=== PATIENT | female | born 1980 | race Native Hawaiian/Other Pacific Islander ===

== ENCOUNTER 2020-10-24 05:56 | Inpatient (IN) ==
[2020-10-16 16:51] LABS: Basophils % 0.4 % (0.0-0.8); Eosinophils # 0.1 10*3/uL (0.0-0.87); Eosinophils % 1.3 % (0.00-10.9); Hematocrit 42.3 VOL% (35.7-47.0); Hemoglobin 13.6 GM/DL (12.0-16.0); Immature Granulocytes % 0.3 %; Immature Granulocytes Absolute 0.02 #; Lymphocytes % 51.9 % (21.3-54.2); Mean Corpuscular HGB Conc 32.2 GM/DL (32-36); Mean Corpuscular Volume 89.6 FL (87-102); Mean Platelet Volume 10.1 FL (9.6-12.0); Monocytes % 6.7 % (1.7-12.7); Neutrophils % 39.4 % (38.7-73.9); Platelet Count 390 T/CUMM (130-400); Red Blood Count 4.72 MC/CUMM (3.8-5.5); Red Cell Distribution Width 14.8 % (9.3-17.3); White Blood Count 7.6 T/CUMM (4-12)
[2020-10-16 17:21] LABS: Eosinophils 2 % (0-10); Lymphocytes 49 % (20-55); Segmented Neutrophils 42 % (50-85); Total Cells Counted 100
[2020-10-16 17:23] LABS: Hypochromasia 1+; Microcytosis 1+; Platelet Estimate Increased; Polychromasia 1+
[2020-10-16 17:27] LABS: Osmolality,Calculated 274.5 MOS/KG (273-304); Potassium 4.1 MMOL/L (3.5-5.1)
[2020-10-24] MEDS ORDERED: ROCURONIUM 50 MG/5 ML VIAL IV ONE (05:58)
[2020-10-24] MEDS ORDERED: SEVOFLURANE 1 UNIT/15 MINUTE INH ONE ×16 (05:58→12:50)
[2020-10-24] MEDS ORDERED: DEXAMETHASONE 4 MG/1 ML VIAL ONE ×3 (05:58→12:45)
[2020-10-24] MEDS ORDERED: ONDANSETRON 4 MG/2 ML VIAL ONE ×2 (05:58→12:45)
[2020-10-24] MEDS ORDERED: MIDAZOLAM 2 MG/2 ML VIAL ONE ×2 (05:58→10:10)
[2020-10-24] MEDS ORDERED: fentaNYL 100 MCG/2 ML VIAL ONE ×2 (05:58→10:10)
[2020-10-24] MEDS ORDERED: propofoL 200 MG/20 ML VIAL IV ONE (05:58)
[2020-10-24] MEDS ORDERED: LIDOCAINE 2% 5 ML VIAL ONE (05:58)
[2020-10-24] MEDS ORDERED: BUPIVACAINE MPF 0.25% 30 ML VIAL ONE (06:22)
[2020-10-24] MEDS ORDERED: LIDOCAINE 1%/EPI INJ 20 ML VIAL ONE (06:23)
[2020-10-24] MEDS ORDERED: ISOSULFAN BLUE 5 ML VIAL SUBCUT ONE (06:23)
[2020-10-24] MEDS ORDERED: TISSUE ADHESIVE 1 EACH APPLICATOR TOP ONE (06:23)
[2020-10-24] MEDS ORDERED: ROPIVACAINE 0.5% 30 ML VIAL ONE (06:31)
[2020-10-24] MEDS ORDERED: LIDOCAINE 1% 5 ML VIAL ONE (06:31)
[2020-10-24] MEDS: LACTATED RINGERS 1,000 ML IV SCH ×3 (06:47→12:15)
[2020-10-24] MEDS ORDERED: KETAMINE 500 MG/10 ML VIAL ONE (10:11)
[2020-10-24] MEDS ORDERED: NEOMYCIN/POLYMYXIN IRRIG SOLN 1 ML AMP BLADDERIRR ONE (10:27)
[2020-10-24] MEDS ORDERED: ACETAMINOPHEN INJ 0 MG/0 ML VIAL IV ONE ×2 (10:46→11:13)
[2020-10-24] MEDS ORDERED: PHENYLEPHRINE 10 MG/1 ML VIAL IV ONE (10:49)
[2020-10-24] MEDS ORDERED: ALBUTEROL INHALER 18 GM INH ONE (11:01)
[2020-10-24] MEDS ORDERED: LACTATED RINGERS 1,000 ML IV ONE ×2 (11:11→13:06)
[2020-10-24] MEDS ORDERED: SODIUM CHLORIDE 0.9% 250 ML IV ONE (11:11)
[2020-10-24] MEDS ORDERED: ACETAMINOPHEN INJ 1,000 MG/100 ML VIAL IV ONE (11:13)
[2020-10-24] MEDS ORDERED: ONDANSETRON 4 MG/2 ML VIAL IV PRN ×2 (13:12→13:40)
[2020-10-24] MEDS ORDERED: ACETAMINOPHEN 325 MG TABLET PO PRN (13:12)
[2020-10-24] MEDS ORDERED: ALBUTEROL/IPRATROPIUM 3 ML NEB RESP TX ONE (13:33)
[2020-10-24] MEDS ORDERED: HYDROmorphone 2 MG/1 ML VIAL IV PRN (13:40)
[2020-10-24] MEDS ORDERED: MEPERIDINE 25 MG/1 ML VIAL IV PRN (13:40)
[2020-10-24] MEDS ORDERED: hydrALAZINE 20 MG/1 ML VIAL IV ONE (13:41)
[2020-10-25] MEDS: HYDROmorphone 2 MG/1 ML VIAL IV PRN ×3 (01:45→21:02)
[2020-10-25 06:04] LABS: Basophils % 0.1 % (0.0-0.8); Hemoglobin 10.4 GM/DL (12.0-16.0); Immature Granulocytes % 0.3 %; Immature Granulocytes Absolute 0.04 #; Lymphocytes # 2.3 10*3/uL (1.4-4.0); Lymphocytes % 17.2 % (21.3-54.2); Mean Corpuscular HGB Conc 32.5 GM/DL (32-36); Mean Corpuscular Volume 89.6 FL (87-102); Mean Platelet Volume 9.7 FL (9.6-12.0); Monocytes % 7.4 % (1.7-12.7); Platelet Count 298 T/CUMM (130-400); Red Blood Count 3.57 MC/CUMM (3.8-5.5); Red Cell Distribution Width 14.9 % (9.3-17.3); White Blood Count 13.3 T/CUMM (4-12)
[2020-10-25] MEDS ORDERED: PHENOL 1.4% THROAT SPRAY 177 ML BOTTLE PO PRN (11:48)
[2020-10-26 12:26] VITALS: BP 127/67
== END 2020-10-26 12:10 | disposition home or self-care (01) | DRG 581 ==
LOC: N.OR 05:56 → N.SDSINP 05:59 → N.4E 13:11
PROVIDERS: ADMIT Student in an Organized Health Care Education/Training Program; ATTEND Student in an Organized Health Care Education/Training Program